=== PATIENT | female | born 1995 | race Caucasian/White ===

== ENCOUNTER 2024-04-25 10:52 | Outpatient (CLI) | payer BC | END 2024-04-25 10:53 | disposition home or self-care (01) | LOC: CSHULT 10:52 | PROVIDERS: ATTEND Family Medicine | DX: R19.7 Diarrhea, unspecified (principal); R74.8 Abnormal levels of other serum enzymes; R10.11 Right upper quadrant pain | CPT/HCPCS: 76705 ==